=== PATIENT | female | born 1955 | race Hispanic/Latino ===

== ENCOUNTER 2021-05-24 17:11 | Emergency (ER) | payer OTHER ==
[~2021-05-24] VITALS: Ht 160 cm; Wt 77.1 kg
[2021-05-24] MEDS ORDERED: PREDNISONE20 MG PO (18:46)
[2021-05-24] MEDS ORDERED: PREDNISONE 20 MG TAB PO ONE (19:00)
[2021-05-24] MEDS ORDERED: PREDNISONE 20 MG TAB ONE (19:12)
== END 2021-05-24 19:15 | disposition home or self-care (01) ==
LOC: FSED 17:26
DX: M25.572 Pain in left ankle and joints of left foot (principal); M76.822 Posterior tibial tendinitis, left leg; M25.472 Effusion, left ankle
CPT/HCPCS: 73610; 99283; J7512